=== PATIENT | female | born 1985 | race Caucasian/White ===

== ENCOUNTER 2021-11-04 10:27 | Emergency (ER) | payer OTHER ==
[~2021-11-04] VITALS: Ht 160 cm; Wt 61.2 kg
--- NOTE | 2021-11-04 10:45 | NUR ---
To ER bed 11, "I had my terminated yesterday- having a lot of pain A4 p/s 09/10, aaox3, breathing even and non labored, awaiting md oneal
[2021-11-04] MEDS ORDERED: ACETAMINOPHEN 325 MG TABLET ONE (10:52)
--- NOTE | 2021-11-04 10:59 | NUR ---
URINE COLLECTED AND SENT TO LAB
[2021-11-04] MEDS ORDERED: ACETAMINOPHEN 325 MG TABLET PO ONE (11:00)
[2021-11-04 11:18] LABS: BASOPHILS % (AUTO) 0.3 % (0.0-2.0); EOSINOPHILS % (AUTO) 2.8 % (0.0-6.0); HEMATOCRIT 33 % (33-45); HEMOGLOBIN 11.1 g/dL (11.5-14.8); LYMPHOCYTES # (AUTO) 1.3 K/uL (0.8-4.8); LYMPHOCYTES % (AUTO) 17.4 % (20.0-44.0); MEAN CORPUSCULAR HGB CONC 34 g/dl (31.0-36.0); MEAN CORPUSCULAR VOLUME 88 fL (82-100); MONOCYTES # (AUTO) 0.4 K/uL (0.1-1.30); MONOCYTES % (AUTO) 5.7 % (2.0-12.0); NEUTROPHILS # (AUTO) 5.7 K/uL (1.8-8.9); NEUTROPHILS % (AUTO) 73.8 % (43.0-81.0); PLATELET COUNT (AUTO) 230 K/uL (150-450); RED BLOOD CELL COUNT(AUTO) 3.69 MIL/uL (4.0-5.2); WHITE BLOOD COUNT (AUTO) 7.7 K/uL (4.3-11.0)
[2021-11-04 11:20] LABS: BILIRUBIN,URINE NEGATIVE (NEGATIVE); COLOR,URINE YELLOW (YELLOW); LEUKOCYTE ESTERASE ,URINE MODERATE (NEGATIVE); NITRITE, URINE POSITIVE (NEGATIVE); PROTEIN,URINE NEGATIVE (NEGATIVE); UGLUCOSE 100 MG/DL mg/dL (NEGATIVE)
[2021-11-04 11:33] LABS: CALCIUM, SERUM 8.1 mg/dL (8.5-10.1); CREATININE 0.7 mg/dL (0.6-1.3); POTASSIUM 3.6 mmol/L (3.5-5.1)
[2021-11-04 11:42] LABS: BACTERIA,URINE Few /HPF (None Seen); RBC,URINE NONE SEEN /HPF (0-2); WBC,URINE 21-50 /HPF (0-3)
[2021-11-04] MEDS ORDERED: MORPHINE SULFATE INJ 4 MG/ML DISP.SYRIN ONE (12:06)
[2021-11-04 12:15] LABS: ALBUMIN 2.7 g/dL (3.4-5.0); BILIRUBIN,TOTAL 0.3 mg/dL (0.2-1.0)
[2021-11-04] MEDS ORDERED: MORPHINE SULFATE INJ 2 MG/ML DISP.SYRIN IV ONE (12:30)
[2021-11-04] MEDS ORDERED: CEFTRIAXONE 1GM BAG (ER ONLY) 1 GM/50 ML PIGGYBACK IV ONE (12:30)
[2021-11-04] MEDS ORDERED: CEFTRIAXONE 1GM BAG (ER ONLY) 50 ML IV ONE (12:36)
[2021-11-04] MEDS ORDERED: ONDANSETRON HCL/PF 4 MG/2 ML VIAL IV ONE (13:30)
[2021-11-04] MEDS ORDERED: KETOROLAC TROMETHAMINE INJ 30 MG/ML VIAL ONE (13:44)
[2021-11-04] MEDS ORDERED: ONDANSETRON HCL/PF 4 MG/2 ML VIAL ONE (13:44)
[2021-11-04] MEDS ORDERED: KETOROLAC TROMETHAMINE INJ 30 MG/ML VIAL IV ONE (14:00)
[2021-11-04] MEDS ORDERED: HYDR-3972 PO (14:08)
[2021-11-04] MEDS ORDERED: NAPR-1164 PO (14:08)
[2021-11-04] MEDS ORDERED: CEPH500T PO (14:08)
[2021-11-04] MEDS ORDERED: ONDA4TAB5 PO (14:09)
--- NOTE | 2021-11-04 14:28 | NUR ---
IV removed. Catheter intact and site benign. Pressure and 4x4 applied to site. No bleeding noted.Patient discharged to home in stable condition. Written and verbal after care instructions given. Patient verbalizes understanding of instruction.
[2021-11-04 14:29] VITALS: BP 110/75
== END 2021-11-04 14:20 | disposition home or self-care (01) ==
LOC: ER 10:29
DX: G89.18 Other acute postprocedural pain (principal); N39.0 Urinary tract infection, site not specified
CPT/HCPCS: 99284; 96365; 96375; 76856; 85025; 87086; 81001; 36415; 80053; 84702; J2270; J1885; J2405; J0696